=== PATIENT | male | born 1955 | race Caucasian/White ===

== ENCOUNTER → 2018-08-11 | Outpatient (CLI) | payer BC, OTHER ==
[~2018-08-11] MED LIST: ASPI-515 PO; OMNIPAQUE 350 MG/ML, 100ML BOTTLE ONE
== END | disposition home or self-care (01) ==
LOC: CFH 13:12
PROVIDERS: ATTEND Genetic Counselor, MS
DX: R91.1 Solitary pulmonary nodule (principal); M51.36 Other intervertebral disc degeneration, lumbar region
CPT/HCPCS: 71260; 72148; Q9967